=== PATIENT | male | born 1985 | race Caucasian/White ===

== ENCOUNTER 2019-05-21 13:08 | Emergency (ER) | payer SELFPAY ==
[~2019-05-21] VITALS: Ht 170.2 cm; Wt 108.9 kg
[2019-05-21 13:12] VITALS: Ht 170.2 cm; Wt 108.9 kg
[2019-05-21 13:36] LABS: BASOPHIL % 1.5 % (0-2); PLATELET COUNT 256 x10^3mcL (130-400); RED CELL DISTRIBUTION WIDTH 13.3 % (11.5-14.5)
[2019-05-21 13:46] LABS: CALCIUM 8.3 mg/dL (8.5-10.1); CARBON DIOXIDE 18.2 mmol/L (21-32); CHLORIDE SERUM 105 mmol/L (98-107); CREATININE SERUM 1.3 mg/dL (0.7-1.3); GFR1 > 60 mL/min; GLUCOSE SERUM 144 mg/dL (74-106); POTASSIUM SERUM 3.1 mmol/L (3.5-5.1); SODIUM SERUM 142 mmol/L (136-145)
[2019-05-21 13:51] LABS: ALBUMIN 3.6 g/dL (3.4-5.0); ALKALINE PHOSPHATASE 81 U/L (46-116); ALT/SGPT 82 U/L (16-63); AST/SGOT 63 U/L (15-37); BILIRUBIN TOTAL 0.37 mg/dL (0.20-1.00); TOTAL PROTEIN, SERUM 7.4 g/dL (6.4-8.2)
[2019-05-21 14:02] VITALS: BP 145/85
== END 2019-05-21 13:58 | disposition short-term general hospital (02) ==
LOC: ED 13:08
PROVIDERS: Emergency Medicine
DX: I21.9 Acute myocardial infarction, unspecified (principal)
CPT/HCPCS: J1644; J2270; J2405